=== PATIENT | male | born 1965 | race Caucasian/White ===

== ENCOUNTER 2020-09-17 01:15 | Emergency (ER) | payer SELFPAY ==
[~2020-09-17] VITALS: Ht 177.8 cm; Wt 67.0 kg
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
--- NOTE | 2020-09-17 01:27 | NUR ---
REPORT RECIEVED FROM ERIC ALICEA. PT RESTING IN BED, GIVEN BLANKETS, AND ON CONTINUOUS PULSE OX AND BP.
--- NOTE | 2020-09-17 01:34 | NUR ---
PT TO CT
--- NOTE | 2020-09-17 02:08 | NUR ---
PT NOT KEEPING BP CUFF ON PROPERLY FOR BP. PT REFUSING TO LAY ON BACK FOR REASSESSMENT AT THIS TIME. WILL RECHECK.
[2020-09-17 02:54] VITALS: BP 107/61
== END 2020-09-17 03:39 | disposition home or self-care (01) ==
LOC: ED 03:00
DX: S09.90XA Unspecified injury of head, initial encounter (principal); F10.10 Alcohol abuse, uncomplicated; Z72.9 Problem related to lifestyle, unspecified; Y90.0 Blood alcohol level of less than 20 mg/100 ml; Y04.8XXA Assault by other bodily force, initial encounter; Y93.89 Activity, other specified; Y92.59 Other trade areas as the place of occurrence of the external cause; Y99.8 Other external cause status
CPT/HCPCS: 70450; 99284